=== PATIENT | male | born 1990 | race Caucasian/White ===

== ENCOUNTER 2025-09-14 13:12 | Emergency (ER) | payer OTHER ==
[~2025-09-14] VITALS: Ht 182.9 cm; Wt 108.0 kg
[2025-09-14 13:25] VITALS: TEMP 98.6
[2025-09-14] MEDS: SODIUM CHLORIDE 0.9% 1,000 ML IV ONE (15:22)
[2025-09-14] MEDS: METOCLOPRAMIDE HCL 5 MG/ML 2 ML VIAL IVP ONE (15:22)
[2025-09-14 15:32] VITALS: BP 151/79; PULSE 77; RESP 20; O2SAT 97
[2025-09-14] MEDS: ONDANSETRON 4 MG TABLET PO ONE (17:19)
== END 2025-09-14 17:40 ==
LOC: EMS 13:12
DX: S09.90XA Unspecified injury of head, initial encounter (principal); F20.9 Schizophrenia, unspecified; Y04.0XXA Assault by unarmed brawl or fight, initial encounter; Y93.89 Activity, other specified; Y92.89 Other specified places as the place of occurrence of the external cause; Y99.8 Other external cause status
CPT/HCPCS: 99285; 70450; 96374; 96361; 70486; 72125; J2765; Q0162; J7030